=== PATIENT | female | born 1955 | race Caucasian/White ===

== ENCOUNTER 2022-02-12 09:45 | Emergency (ER) | payer MEDICARE, MEDICAID ==
[~2022-02-12] VITALS: Ht 167.6 cm; Wt 72.6 kg
[~2022-02-12 09:45] MED LIST: NAPROSYN500 MG PO; ULTRAM50 MG PO; VICODIN 5/500 505 MG PO
[2022-02-12] MEDS ORDERED: PENICILLIN VK500 MG PO (12:17)
[2022-02-12] MEDS ORDERED: IBUPROFEN600 MG PO (12:17)
== END 2022-02-12 12:53 | disposition home or self-care (01) ==
LOC: ED 09:45
DX: K02.9 Dental caries, unspecified (principal); Z98.51 Tubal ligation status